=== PATIENT | male | born 1995 | race Caucasian/White ===

== ENCOUNTER 2018-02-05 21:55 | Emergency (ER) | payer OTHER | END 2018-02-05 22:15 | disposition left against medical advice (07) | LOC: ER 21:55 | DX: Z53.21 Procedure and treatment not carried out due to patient leaving prior to being seen by health care provider (principal) ==

== ENCOUNTER 2018-06-17 03:01 | Emergency (ER) | payer OTHER ==
[2018-06-17] MEDS ORDERED: KETOROLAC TROMETHAMINE 60 MG/2 ML SDV IM ONE (03:34)
[2018-06-17] MEDS ORDERED: ACETAMINOPHEN 325 MG TABLET PO ONE (04:28)
[2018-06-17] MEDS ORDERED: MORPHINE SULFATE IR 15 MG TABLET PO ONE (04:28)
[2018-06-17] MEDS ORDERED: ONDANSETRON ODT 4 MG TAB (6 TAB/ER DISP) PO PRN (04:30)
--- NOTE | 2018-06-17 04:34 | ER Document Report ---
ED General - General Chief Complaint: Arm Pain Stated Complaint: RIGHT ARM INJURY Time Seen by Provider: 06/17/18 03:23 Notes: Patient is a 23-year-old male without chronic medical problems who presents after a fall onto his right arm several hours prior to arrival. Patient states that he was drunk, fell to the ground landing on his right shoulder and humerus region. He states that since that time he has had a severe, throbbing pain to the affected area with associated swelling. Any attempt at moving the arm dramatically worsens the pain. Nothing improves the pain. No history of similar injuries in the past. He is right-hand dominant. He states it is difficult for him to fully open his hand. Denies any associated pallor or paresthesias to the hand. Denies any head or neck trauma. Denies any additional trauma to any other location other than his right arm. He has not contacted his general doctor regarding today's concerns. TRAVEL OUTSIDE OF THE [place] IN LAST 30 DAYS: No - Related Data Allergies/Adverse Reactions: loratadine [From Claritin] Allergy (Verified 07/30/15 23:15) NSAIDS (Non-Steroidal Anti-Inflamma Allergy (Verified 06/17/18 04:00) Past Medical History - General Information source: Patient - Social History Smoking Status: Current Some Day Smoker Chew tobacco use (# tins/day): No Frequency of alcohol use: Occasional Drug Abuse: None Lives with: Family Family History: Reviewed & Not Pertinent Patient has suicidal ideation: No Patient has homicidal ideation: No Pulmonary Medical History: Reports: Hx Asthma - childhood, resolved Renal/ Medical History: Denies: Hx Peritoneal Dialysis - Immunizations Immunizations up to date: Yes Hx Diphtheria, Pertussis, Tetanus Vaccination: Yes Review of Systems - Review of Systems Notes: Constitutional: Negative for fever. Eyes: Negative for visual changes. ENT: Negative for facial injury Cardiovascular: Negative for chest injury. Respiratory: Negative for shortness of breath. Gastrointestinal: Negative for abdominal injury. Genitourinary: Negative for genital injury Musculoskeletal: Positive for right arm injury Skin: Negative for laceration/abrasions. Neurological: Negative for head injury. Physical Exam - Vital signs Vitals: Temp Pulse Resp BP Pulse Ox 98.6 F 97 18 113/65 97 06/17/18 03:12 06/17/18 03:12 06/17/18 03:12 06/17/18 03:12 06/17/18 03:12 Interpretation: Normal Notes: PHYSICAL EXAMINATION: GENERAL: Moderately intoxicated, appears in pain HEAD: Atraumatic, normocephalic. EYES: Pupils equal round and reactive to light, extraocular movements intact, sclera anicteric, conjunctiva are normal. ENT: nares patent, no oral pharyngeal trauma. No hemotympanum, no Barry's sign , no raccoon eyes. NECK: No midline cervical spine tenderness. Patient able to move their head to 45 bilaterally without any discomfort. LUNGS: Breath sounds clear to auscultation bilaterally and equal. No wheezes rales or rhonchi. HEART: Regular rate and rhythm without murmurs. CHEST WALL: No ecchymosis over the chest wall. ABDOMEN: Soft, nontender, normoactive bowel sounds. No guarding, no rebound. No abdominal bruising EXTREMITIES: Normal range of motion, no pitting or edema. No long bone deformities. BACK: No midline spinal tenderness, step-offs, or deformities. NEUROLOGICAL: Face symmetric. Tongue protrudes midline. Extraocular motions intact. Pupils are 2 mm and equally reactive. Moves all extremities spontaneously. Unable to fully extend the right thumb. Able make an okay sign. Unable to fully extend the third through fifth digits. PSYCH: Moderately intoxicated SKIN: Warm, Dry, normal turgor, no rashes or lesions noted. Course - Re-evaluation Re-evalutation: 06/17/18 04:31 Patient presents after a fall earlier tonight while intoxicated. He did land directly on his right humerus. He presents with substantial swelling to the mid humeral region. He has weakness in terms of his ability to extend his thumb. X-ray does show a comminuted, displaced midshaft humeral fracture. I did contact the orthopedic surgeon patient registration representative Dr. Mathis and informed him of the patient's exam including his nerve deficits, forwarded images and he was able to review them. He has asked that the patient be placed in a U-splint which has been completed. The patient is also been placed in a sling. Dr. Mathis would like to have the patient follow-up as an outpatient for surgical management. I have reviewed at length with the patient the need for follow-up on Monday as planned. At this time will discharge with return precautions and follow-up recommendations. Verbal discharge instructions given a the bedside and opportunity for questions given. Medication warnings reviewed. Patient is in agreement with this plan and has verbalized understanding of return precautions and the need for orthopedic surgery follow-up. - Vital Signs Vital signs: Temp Pulse Resp BP Pulse Ox 98.6 F 97 18 113/65 97 06/17/18 03:12 06/17/18 03:12 06/17/18 03:12 06/17/18 03:12 06/17/18 03:12 - Diagnostic Test Radiology reviewed: Image reviewed, Reports reviewed Radiology results interpreted by me: 06/17/18 04:31 Right humerus: Comminuted, displaced midshaft humeral fracture Discharge - Discharge Clinical Impression: Right humeral fracture Qualifiers: Encounter type: initial encounter Humerus Location: shaft Fracture type: closed Fracture morphology: comminuted Fracture alignment: displaced Qualified Code(s): S42.351A - Displaced comminuted fracture of shaft of humerus, right arm , initial encounter for closed fracture Condition: Good Disposition: HOME, SELF-CARE Additional Instructions: Your right humerus is broken into multiple pieces. I have discussed her case with the orthopedic surgeon patient registration representative betsy and he has informed me that she will require surgery. You need to contact the office on Monday to be seen. Please keep the splint that was placed on until you are cleared to remove it by the orthopedic surgeon. For your pain: Take acetaminophen 1000 mg every 6 hours as needed for pain. If this does not control your pain you may take 15 mg of oral morphine every 4 hours as needed. Please be very careful about using the oral morphine and only use this for severe pain. Please return to the emergency department immediately if you have uncontrolled pain, fever, have discoloration of your hand or forearm, or have any other symptoms that are worrisome to you. Prescriptions: Morphine Sulfate [Morphine Ir 15 mg Tablet] 15 mg PO Q6HP PRN #12 tablet PRN Reason: Forms: Return to Work Referrals: EVA SERRA MD [ACTIVE STAFF] - 06/18/18
--- NOTE | 2018-06-17 04:35 | RADIOLOGY REPORT (SQ) ---
CLINICAL DATA: 23-year-old male status post fall with right humerus pain. TECHNICAL DATA: Two x-ray views of the right humerus were performed on 06/17/2018 at 4:05 AM. COMPARISONS: None FINDINGS: There is a comminuted, displaced fracture through the midshaft of the right humerus with bayonet apposition of the major fracture fragments. There are three major fracture fragments. There is no significant angulation of the fracture fragments. No lytic or sclerotic bone lesions are identified. The shoulder joint and elbow joint are intact. There are no significant degenerative or arthritic changes. Bone mineralization is normal There is marked soft tissue swelling surrounding the fracture site. IMPRESSION: Comminuted displaced fracture through the midshaft of the right humerus with bayonet apposition of the major fracture fragments without significant angulation. There is marked surrounding soft tissue swelling.
[2018-06-17 05:05] VITALS: BP 121/79
== END 2018-06-17 05:06 | disposition home or self-care (01) ==
LOC: ER 03:01
DX: S42.351A Displaced comminuted fracture of shaft of humerus, right arm, initial encounter for closed fracture (principal); W19.XXXA Unspecified fall, initial encounter; F10.920 Alcohol use, unspecified with intoxication, uncomplicated; F17.200 Nicotine dependence, unspecified, uncomplicated; J45.909 Unspecified asthma, uncomplicated
CPT/HCPCS: 99283; 73060; L3650

== ENCOUNTER 2018-06-19 12:15 | Day surgery (SDC) | payer OTHER ==
[~2018-06-19 12:15] MED LIST: CEFAZOLIN 2 GM/D5W RTU 2 GM/50 ML RTUPB IV PRN
[2018-06-19] MEDS ORDERED: FENTANYL CITRATE INJ/PF 100 MCG/2 ML AMPUL ONE ×2 (12:44→19:21)
[2018-06-19] MEDS ORDERED: DEXAMETHASONE SOD PHOSPHATE INJ 4 MG/1 ML VIAL ONE (12:44)
[2018-06-19] MEDS ORDERED: ONDANSETRON HCL INJ/PF 4 MG/2 ML SDV ONE (12:44)
[2018-06-19] MEDS ORDERED: MIDAZOLAM 2 MG/2 ML INJ ONE (12:44)
[2018-06-19] MEDS ORDERED: ACETAMINOPHEN 1,000 MG/100 ML RTUPB IV ONE (12:45)
[2018-06-19] MEDS ORDERED: PROPOFOL INJ 200 MG/20 ML VIAL IV ONE (12:45)
[2018-06-19] MEDS ORDERED: ALBUTEROL SULFATE 0.083% NEB 2.5 MG/3 ML AMPUL NEB ONE (14:01)
[2018-06-19] MEDS ORDERED: BUPIVACAINE HCL 0.5 % INJ/PF 30 ML SDV ONE (14:40)
[2018-06-19] MEDS ORDERED: RINGERS SOLUTION,LACTATED 1,000 ML IV ONE (14:45)
[2018-06-19 14:54] LABS: HEMATOCRIT 39.4 % (37.9-51.0); HEMOGLOBIN 13.9 g/dL (13.5-17.0); MEAN CORPUSCULAR HEMOGLOBIN 30.8 pg (27.0-33.4); MEAN CORPUSCULAR HGB CONC 35.1 g/dL (32.0-36.0); MEAN CORPUSCULAR VOLUME 88 fl (80-97); PLATELET COUNT 184 10^3/uL (150-450); RED CELL DISTRIBUTION WIDTH 13.5 % (11.5-14.0); WHITE BLOOD COUNT 9.1 10^3/uL (4.0-10.5)
[2018-06-19 15:21] LABS: ANION GAP 10 (5-19); BLOOD UREA NITROGEN 13 mg/dL (7-20); CALCIUM 8.7 mg/dL (8.4-10.2); CARBON DIOXIDE 27 mmol/L (22-30); CHLORIDE 101 mmol/L (98-107); GLUCOSE 90 mg/dL (75-110); POTASSIUM 4.7 mmol/L (3.6-5.0); SODIUM 138.4 mmol/L (137-145)
[2018-06-19] MEDS ORDERED: KETOROLAC TROMETHAMINE 60 MG/2 ML SDV ONE (15:59)
[2018-06-19] MEDS ORDERED: CEFAZOLIN 2 GM/D5W RTU 2 GM/50 ML RTUPB IV ONE (16:05)
[2018-06-19] MEDS ORDERED: LIDOCAINE 2%/EPINEPHRINE INJ 20 ML VIAL ONE (18:02)
[2018-06-19] MEDS ORDERED: ROPIVACAINE HCL 0.5% INJ/PF (5 MG/1 ML) 30 ML SDV ONE (18:03)
[2018-06-19] MEDS ORDERED: LIDOCAINE 2% INJ-PF (20 MG/ML) 10 ML AMPUL ONE (18:03)
[2018-06-19] MEDS ORDERED: PROMETHAZINE HCL INJ 25 MG/1 ML VIAL IV PRN ×2 (18:33)
[2018-06-19] MEDS ORDERED: FENTANYL CITRATE INJ/PF 100 MCG/2 ML AMPUL IV PRN ×2 (18:33)
[2018-06-19] MEDS ORDERED: ONDANSETRON HCL INJ/PF 4 MG/2 ML SDV IV PRN ×2 (18:33→19:12)
[2018-06-19] MEDS ORDERED: DIPHENHYDRAMINE HCL 50 MG/ML VIAL IV PRN (18:33)
[2018-06-19] MEDS ORDERED: MORPHINE SULFATE 10 MG/ML INJ IV PRN (18:33)
[2018-06-19] MEDS ORDERED: OXYCODONE-ACETAMINOPHEN 5-325 MG TABLET PO PRN (19:12)
[2018-06-19] MEDS ORDERED: HYDROMORPHONE HCL INJ/PF 2 MG/ML AMPULE IV PRN (19:12)
--- NOTE | 2018-06-19 19:13 | Discharge Summary ---
Discharge Summary (SDC) - Discharge Final Diagnosis: Right midshaft humerus fracture, radial nerve palsy Date of Surgery: 06/19/18 Discharge Date: 06/19/18 Condition: Good Treatment or Instructions: Schedule Follow Up w/ Dr. Derek Villagran @ [facility] for Surgery to be seen in 10-14 days or as scheduled [place]: [place]: [place]: Ice and elevate Keep splint clean/dry/intact. If your fingers become numb please unwrap the Santy wrap but leave the splint in place, if the sensation does not return within 30 minutes please return to the emergency department. May begin finger range of motion attempting to make full fist. Please use ibuprofen (Motrin or Advil) 600-800 mg every 8 hours as needed for pain or fever DO NOT TAKE w/ TORADOL may use once TORADOL complete. You may also use acetaminophen (Tylenol) 1000 mg every 4-6 hours as needed for pain or fever. Please be aware that many medications contain acetaminophen, do not exceed a total of 1000 mg of acetaminophen every 6 hours. If ibuprofen and acetaminophen are not sufficient for your pain you may take the Percocet/Levant. Please be aware that the Percocet/Levant does contain Tylenol. Stool softener of choice when on pain medication. Prescriptions: Oxycodone HCl/Acetaminophen [Percocet 7.5-325 mg Tablet] 1 each PO Q6 PRN #25 tablet PRN Reason: Discharge Diet: As Tolerated Respiratory Treatments at Home: Deep Breathing/Coughing Discharge Activity: No Lifting Over 10 Pounds, No Lifting/Push/Pulling Report the Following to Your Physician Immediately: Fever over 101 Degrees, Unusual Bleeding, Redness, Swelling, Warmth
[2018-06-19] MEDS ORDERED: MEPERIDINE HCL/PF INJ 25 MG/1 ML DISP.SYRIN ONE (19:20)
[2018-06-19] MEDS: MEPERIDINE HCL/PF INJ 25 MG/1 ML DISP.SYRIN IV PRN ×2 (19:20→19:29)
--- NOTE | 2018-06-19 19:27 | Operative Report ---
Operative Report DATE OF SURGERY: 06/19/18 PREOPERATIVE DIAGNOSIS: Right midshaft humerus fracture, radial nerve palsy POSTOPERATIVE DIAGNOSIS: Same OPERATION: Open reduction internal fixation midshaft humerus fracture. Radial nerve neurolysis SURGEON: AVERY SAMUEL ANESTHESIA: GA COMPLICATIONS: None ESTIMATED BLOOD LOSS: 250cc PROCEDURE: Indication for above procedure: 23-year-old male who sustained a fall onto his right upper extremity resulting in a humerus fracture. Patient was sent to my office which point we discussed findings on radiographs and clinical examination which demonstrated concomitant radial nerve palsy which is not uncommon given the nature of his injury. After discussing treatment options including operative versus nonoperative intervention joint decision was made to proceed with operative treatment. Risks and benefits were explained patient verbalized understanding consented for the procedure. Procedure In Detail: Patient was seen and evaluated in the preoperative holding area. The right upper extremity was initialized and marked. Patient received 2g of Ancef IV for bacterial prophylaxis. Patient was taken back to the operative room where transferred to the operative table and placed under general anesthesia. Once they were adequately anesthetized patient was placed in the lateral decubitus position bilateral lower extremities carefully padded, cervical spine placed in neutral position and axillary roll placed. A surgical team debriefing was performed ensuring all instrumentation was available, the surgical procedure was discussed with possible concerns reviewed. The upper extremity was prepped with ChloraPrep and draped in a sterile fashion. A timeout was done identifying correct patient, procedure and extremity everyone in attendance agree with this and verbalized no concerns. Longitudinal skin incision was made over the posterior humerus. Blunt dissection was performed. Any small peripheral veins were coagulated with with cautery. Dissection was made laterally to establish a skin plane. The posterior antebrachial cutaneous nerve was then identified and tracked in a proximal direction to identify the radial nerve as it passed posterior. Once the radial nerve was identified it was released from the intramuscular septum along the lateral aspect of the humerus and tagged with a Kulwinder drain. The triceps laterally was then elevated from proximal to distal while protecting the radial nerve. The radial nerve was found at the fracture site but no evidence of discontinuity. There was contusion of the nerve evident at the level of the injury. A medial skin plane was then established the ulnar nerve was identified. It was tracked proximally distally and tagged. A lap sponge was placed around the triceps for retraction. The fracture site was then exposed. Hematoma was evacuated. A periosteal elevator expose the cortical fracture ends remaining of the humerus was exposed with a supraperiosteal dissection. The coronal split fragment was then reduced to the distal fragment with a reduction clamp. The remaining large proximal fragment to the distal fragment and held with reduction clamp. C-arm fluoroscopy was obtained confirming appropriate reduction. 2 interfragmentary 2.7 millimeter screws were placed into the coronal split fragment maintaining reduction with interfragmentary compression. Additional interfragmentary screws were then placed from the distal fragment into the proximal fragment obtaining interfragmentary compression x2, unfortunately 1 of the screws was bent and broke and remained within the medullary canal. C-arm fluoroscopy was obtained confirming reduction of the fracture. A [employer] extra-articular posterior-lateral plate was then placed on the bone and a 14 hole plate was chosen. Under direct visualization the plate was carefully placed underneath the radial nerve and its branches to the triceps. Prior to placement the plate was contoured with a concave anterior band. Fixation was first obtained distally with bicortical fixation. Further fixation was obtained proximally with bicortical screw. C-arm fluoroscopy was obtained confirming appropriate plate size and placement once this was confirmed 3 additional bicortical screws were placed proximally an additional locking screw. Distally 2 cortex screws and 3 additional locking screws placed. At completion of the case there is no evidence of intra-articular screw penetration upon palpation with range of motion. No evidence of impingement along the olecranon fossa or anteriorly. All screws were appropriate length without extrusion. There is no evidence of motion at the fracture site. Wound was copiously irrigated with normal saline. The lateral felix-tricipital interval was closed with 0 Vicryl and special attention avoiding compression of the radial nerve. All bleeding was controlled with cautery. Subcutaneous tissues were closed with interrupted 3-0 Monocryl suture. Skin was closed with gene. 30 cc of 0.5% bupivacaine without epinephrine was injected for postoperative pain control. Patient was placed in a posterior splint with 60 degrees of flexion. Sponge counts, instrument counts, needle counts counts were correct. Patient was then awoken from anesthesia. Transferred from the operating room table to the operating room stretcher. There was no intraoperative complications patient tolerated procedure well stable to PACU. Postoperative plan: Patient will follow in the office in 2 weeks we will obtain radiographs. We will begin elbow range of motion 4 weeks postoperatively.
[2018-06-19] MEDS: FENTANYL CITRATE INJ/PF 100 MCG/2 ML AMPUL IV PRN ×2 (19:46→20:00)
--- NOTE | 2018-06-19 19:49 | RADIOLOGY REPORT (SQ) ---
EXAM DESCRIPTION: HUMERUS RIGHT; NO CHG FLUORO COMPLETED DATE/TIME: 06/19/2018 6:51 pm REASON FOR STUDY: ORIF RT DISTAL HUMERUS S42.351A DISPLACED COMMINUTED FX SHAFT OF HUMERUS, RIGHT A RM G56.31 LESION OF RADIAL NERVE, RIGHT UPPER LIMB COMPARISON: None. FLUOROSCOPY TIME: 1.0 minutes Spot images saved to PACS. TECHNIQUE: Intra-operative images acquired during surgical procedure to evaluate progress. NUMBER OF IMAGES: 8 LIMITATIONS: None. FINDINGS: Fluoroscopy was provided for intraoperative procedure. Please refer to the operative repo rt for further discussion. IMPRESSION: IMAGE(S) OBTAINED DURING PROCEDURE. COMMENT: Quality ID [id number]: Final reports for procedures using fluoroscopy that document radiation exp osure indices, or exposure time and number of fluorographic images (if radiation exposure indices are not available) Please consult full operative report of the attending physician for description of the procedure. TECHNICAL DOCUMENTATION: JOB ID: [id number] [employer]- All Rights Reserved Reading location - IP/workstation name: [email or web address]
--- NOTE | 2018-06-19 19:49 | RADIOLOGY REPORT (SQ) ---
EXAM DESCRIPTION: HUMERUS RIGHT; NO CHG FLUORO COMPLETED DATE/TIME: 06/19/2018 6:51 pm REASON FOR STUDY: ORIF RT DISTAL HUMERUS S42.351A DISPLACED COMMINUTED FX SHAFT OF HUMERUS, RIGHT A RM G56.31 LESION OF RADIAL NERVE, RIGHT UPPER LIMB COMPARISON: None. FLUOROSCOPY TIME: 1.0 minutes Spot images saved to PACS. TECHNIQUE: Intra-operative images acquired during surgical procedure to evaluate progress. NUMBER OF IMAGES: 8 LIMITATIONS: None. FINDINGS: Fluoroscopy was provided for intraoperative procedure. Please refer to the operative repo rt for further discussion. IMPRESSION: IMAGE(S) OBTAINED DURING PROCEDURE. COMMENT: Quality ID [id number]: Final reports for procedures using fluoroscopy that document radiation exp osure indices, or exposure time and number of fluorographic images (if radiation exposure indices are not available) Please consult full operative report of the attending physician for description of the procedure. TECHNICAL DOCUMENTATION: JOB ID: [id number] [employer] All Rights Reserved Reading location - IP/workstation name: [email or web address]
[2018-06-19 22:06] VITALS: BP 144/56
== END 2018-06-19 20:10 | disposition home or self-care (01) ==
LOC: OROUT 12:15 → 4S 20:45
PROVIDERS: ATTEND Orthopaedic Surgery
DX: S42.351A Displaced comminuted fracture of shaft of humerus, right arm, initial encounter for closed fracture (principal); W19.XXXA Unspecified fall, initial encounter; G56.31 Lesion of radial nerve, right upper limb; J45.909 Unspecified asthma, uncomplicated; Z88.8 Allergy status to other drugs, medicaments and biological substances; Z88.6 Allergy status to analgesic agent
CPT/HCPCS: 24516; 64708; 36415; 85027; 80048; 73060; 94640; C1713 ×9; J2250; J3490; J1100; J1200; J3010; J2175; J2405; J2704; J0690; J0131; 01744; J1885; J2795

== ENCOUNTER 2020-02-13 22:19 | Emergency (ER) | payer OTHER ==
[2020-02-14] MEDS ORDERED: LIDOCAINE 1% INJ-PF (10 MG/ML) 30 ML SDV INJ ONE (00:28)
--- NOTE | 2020-02-14 00:30 | ER Document Report ---
ED Medical Screen (RME) - General Chief Complaint: Laceration Stated Complaint: RIGHT FINGER LACERATION Time Seen by Provider: 02/14/20 00:28 Mode of Arrival: Ambulatory Notes: Patient presents with laceration to the right hand to the palmar surface of the fourth and fifth finger. Patient with tendon deficit to the right fifth finger, no active bleeding. Tetanus immunizations currently up-to-date. I have greeted and performed a rapid initial assessment of this patient. A comprehensive ED assessment and evaluation of the patient, analysis of test results and completion of the medical decision making process will be conducted by additional ED providers. TRAVEL OUTSIDE OF THE [place] IN LAST 30 DAYS: No - Related Data Allergies/Adverse Reactions: meperidine [From Demerol] Allergy (Severe, Verified 06/19/18 20:26) Hives chloral hydrate Allergy (Verified 06/19/18 21:19) loratadine [From Claritin] Allergy (Verified 07/30/15 23:15) NSAIDS (Non-Steroidal Anti-Inflamma Allergy (Verified 06/19/18 19:42) Hives Past Medical History - Past Medical History Cardiac Medical History: Denies: Hx Coronary Artery Disease, Hx Heart Attack, Hx Hypertension Pulmonary Medical History: Reports: Hx Asthma - childhood, resolved Denies: Hx Bronchitis, Hx COPD, Hx Pneumonia Neurological Medical History: Denies: Hx Cerebrovascular Accident, Hx Seizures Renal/ Medical History: Denies: Hx Peritoneal Dialysis Musculoskeltal Medical History: Denies Hx Arthritis - Immunizations Immunizations up to date: Yes Hx Diphtheria, Pertussis, Tetanus Vaccination: Yes Physical Exam - Vital signs Vitals: Temp Pulse Resp BP Pulse Ox 98.7 F 86 16 121/71 99 02/13/20 22:33 02/13/20 22:33 02/13/20 22:33 02/13/20 22:33 02/13/20 22:33 - Skin Skin irregularity: Laceration - Laceration to palmar surface of right fourth and fifth fingers Course - Vital Signs Vital signs: Temp Pulse Resp BP Pulse Ox 98.7 F 86 16 121/71 99 02/13/20 22:33 02/13/20 22:33 02/13/20 22:33 02/13/20 22:33 02/13/20 22:33
[2020-02-14] MEDS ORDERED: LIDOCAINE 1% INJ-PF (10 MG/ML) 30 ML SDV ONE (03:29)
--- NOTE | 2020-02-14 07:06 | RADIOLOGY REPORT (SQ) ---
EXAM DESCRIPTION: XR HAND 3 OR MORE VIEWS COMPLETED DATE/TME: 02/14/2020 05:36 CLINICAL HISTORY: 24 years Male, hand laceration, evaluate for depth/gregorio involvem COMPARISON: None. Findings: Known soft tissue injury; no radioopaque foreign body. 0.4 cm ossicular fragmentation of the right radial styloid indicative of prior injury. Bones, joints, and soft tissues of the RIGHT XR HAND 3 OR MORE VIEWS appear otherwise intact. IMPRESSION: Soft tissue injury; else, no acute findings. .
--- NOTE | 2020-02-14 07:38 | ER Document Report ---
ED Wound - General Chief Complaint: Laceration Stated Complaint: RIGHT FINGER LACERATION Time Seen by Provider: 02/14/20 00:28 Mode of Arrival: Ambulatory Notes: 24-year-old [id number] male with past medical history of right humerus fracture presenting with laceration to his right hand after using a serrated knife at work. States the incident occurred at 6 PM last night. He has some difficulty flexing his right pinky finger. He has good sensation distally and good pulses. Denies any fever, chills, or additional symptoms. He states he is up-to-date on his tetanus shot. TRAVEL OUTSIDE OF THE [place] IN LAST 30 DAYS: No - Related Data Allergies/Adverse Reactions: meperidine [From Demerol] Allergy (Severe, Verified 06/19/18 20:26) Hives chloral hydrate Allergy (Verified 06/19/18 21:19) loratadine [From Claritin] Allergy (Verified 07/30/15 23:15) NSAIDS (Non-Steroidal Anti-Inflamma Allergy (Verified 06/19/18 19:42) Hives Past Medical History - Social History Smoking Status: Never Smoker Family History: Reviewed & Not Pertinent Patient has homicidal ideation: No - Past Medical History Cardiac Medical History: Denies: Hx Coronary Artery Disease, Hx Heart Attack, Hx Hypertension Pulmonary Medical History: Reports: Hx Asthma - childhood, resolved Denies: Hx Bronchitis, Hx COPD, Hx Pneumonia Neurological Medical History: Denies: Hx Cerebrovascular Accident, Hx Seizures Renal/ Medical History: Denies: Hx Peritoneal Dialysis Musculoskeletal Medical History: Denies Hx Arthritis - Immunizations Immunizations up to date: Yes Hx Diphtheria, Pertussis, Tetanus Vaccination: Yes Review of Systems - Review of Systems Constitutional: No symptoms reported EENT: No symptoms reported Cardiovascular: No symptoms reported Respiratory: No symptoms reported Gastrointestinal: No symptoms reported Genitourinary: No symptoms reported Male Genitourinary: No symptoms reported Musculoskeletal: No symptoms reported Skin: See HPI Neurological/Psychological: No symptoms reported Physical Exam - Vital signs Vitals: Temp Pulse Resp BP Pulse Ox 98.7 F 86 16 121/71 99 02/13/20 22:33 02/13/20 22:33 02/13/20 22:33 02/13/20 22:33 02/13/20 22:33 Interpretation: No: Bradycardic, Tachycardic, Hypoxic, Tachypneic, Febrile - Notes Notes: Adult General: GENERAL: Alert, interacts well. No acute distress HEAD: Normocephalic, atraumatic EYES: Pupils equal, round and reactive to light. Extraocular movements intact. ENT: Airway patent. Nares patent. NECK: Full range of motion. Supple. Trachea midline. ABDOMEN: Nondistended. GENITOURINARY: Deferred EXTREMITIES: Moves all 4 extremities spontaneously. decreased flexion of right pinky finger. full flexion of right ring finger. Good capillary refill. Good sensation distal to injury. No edema, normal radial pulses. No cyanosis. BACK: No back tenderness NEUROLOGICAL: Alert and oriented x3. Normal speech. PSYCH: Normal affect, normal mood. SKIN: Warm, dry, normal turgor. 1.5 cm laceration along palmar pip joint of right pinky. 1 cm laceration on right index finger at pip Course - Re-evaluation Re-evalutation: Patient denies any allergies. I discussed with patient that I have concerns that he has a tendon laceration on his right pinky as he has difficulty flexing pinky. At one instance he was able to flex pinky almost completely. Also reports that his wound was caused by a very dirty knife. We will also prescribe him prophylactic antibiotics to help prevent infection. X-rays show no foreign bodies and no reports of free air noted. The wound is a 1.5 cm laceration at the pip of the right pinky along the palmar surface and a 1 cm laceration to the pip of the right index finger. The wound was copiously cleaned with normal saline and shur cleans. The wound was explored for foreign bodies and none were found. The wound was prepped and draped in the normal sterile fashion. The wound was anesthetized using 1% lidocaine. The edges were reapproximated using 5-0 ethilon. Bleeding was well controlled and the patient tolerated the procedure well. Wounds were covered with a sterile dressing and bacitracin and placed in a finger splint. I discussed with patient that he will need to follow-up with an orthopedic hand specialist for a tendon injury. Also discussed return precautions to include signs of infection which include redness, swelling, discharge. Per patient he is up-to-date on his tetanus. He will need to have the sutures removed in approximately 7 days. This can be done in the er, a primary care office or an urgent care. Wound care was discussed with patient. Patient acknowledges and verbalizes understanding of instructions. All questions answered. 02/14/20 07:54 - Vital Signs Vital signs: Temp Pulse Resp BP Pulse Ox 98.7 F 68 16 103/55 L 100 02/13/20 22:33 02/14/20 02:59 02/13/20 22:33 02/14/20 02:59 02/14/20 02:59 Procedures - Laceration/Wound Repair Right Hand 5th digit Wound length (cm): 1.5 Wound's Depth, Shape: Superficial Laceration pre-procedure: Sterile PPE donned, Shur-Clens applied Right Hand 4th digit Wound length (cm): 1 Wound's Depth, Shape: Superficial Laceration pre-procedure: Sterile PPE donned, Shur-Clens applied Discharge - Discharge Clinical Impression: Laceration, Tendon injury Condition: Stable Disposition: HOME, SELF-CARE Instructions: Antibiotic Ointment Protection ([facility]), Laceration Care ([facility]), Prophylactic Antibiotic ([facility]), Soap Cleansing ([facility]) Additional Instructions: Please return to your primary doctor, the ED, or an urgent care in 7 days for suture removal. Return immediately if you develop spreading redness around the wound, pus from the wound, worsening pain, or a fever of >100.4. Keep the area clean and dry. Wash gently with soap and water twice daily and cover with antibiotic ointment. You have been prescribed an antibiotic for prophylactic purposes. Please take medication as prescribe. Please also follow up with an orthopedist specialist as soon as possible as there is concern of tendon injury to your right pinky finger. Continue to wear splint on pinky finger until you have been evaluated by an park interpretive specialist. Prescriptions: Cephalexin Monohydrate [Keflex 500 mg Capsule] 500 mg PO Q6H 5 Days #24 capsule
[2020-02-14 08:10] VITALS: BP 127/73
== END 2020-02-14 08:09 | disposition home or self-care (01) ==
LOC: ER 22:19
DX: S61.216A Laceration without foreign body of right little finger without damage to nail, initial encounter (principal); S61.210A Laceration without foreign body of right index finger without damage to nail, initial encounter; T14.90XA Injury, unspecified, initial encounter; W26.0XXA Contact with knife, initial encounter; Y99.0 Civilian activity done for income or pay
CPT/HCPCS: 99283; 73130; 12001; J3490